=== PATIENT | female | born 1975 | race Caucasian/White ===

== ENCOUNTER → 2017-07-02 | Outpatient (CLI) | payer OTHER | LOC: BMCIMAGING 09:50 | PROVIDERS: ATTEND Physician Assistant | DX: N60.01 Solitary cyst of right breast (principal) | CPT/HCPCS: G0204 ==

== ENCOUNTER → 2018-08-29 | Outpatient (CLI) | payer OTHER | LOC: BMCIMAGING 08:30 | PROVIDERS: ATTEND Internal Medicine | DX: Z12.31 Encounter for screening mammogram for malignant neoplasm of breast (principal) ==